=== PATIENT | male | born 1935 | race Caucasian/White ===

== ENCOUNTER 2019-07-06 | Emergency (ER) | payer MEDICARE ==
[~2019-07-06] MED LIST: BACTRIM DS1 TAB PO; KEFLEX500 M1 PO
[2019-07-06] MEDS ORDERED: INDAPAMIDE2.5 MG PO (08:10)
[2019-07-06] MEDS ORDERED: NITROGLYCERIN0.4 MG SL (08:11)
[2019-07-06] MEDS ORDERED: ATENOLOL25 MG PO (08:11)
[2019-07-06] MEDS ORDERED: HYDROXYCHLOR200 M1 PO (08:12)
[2019-07-06] MEDS ORDERED: PREDNISONE5 MG PO (08:13)
[2019-07-06] MEDS ORDERED: LORTAB 5/3255 MG PO (08:15)
[2019-07-06] MEDS ORDERED: DITROPAN5 MG/TA1 PO (08:16)
[2019-07-06] MEDS ORDERED: FUROSEMIDE20 MG PO (08:16)
[2019-07-06] MEDS ORDERED: DOXAZOSIN4 MG PO (08:17)
[2019-07-06] MEDS ORDERED: POTASSIUM CHLO20 ME2 PO (08:17)
[2019-07-06] MEDS ORDERED: ASPIRIN ADULT L81 M2 PO (08:18)
[2019-07-06] MEDS ORDERED: VITAMIN D31000 UNI1 PO (08:19)
== END 2019-07-06 09:30 | disposition home or self-care (01) ==
PROC: 0HQGXZZ Repair Left Hand Skin, External Approach (ICD-10-PCS; principal; 2019-07-06)
DX: S61.217A Laceration without foreign body of left little finger without damage to nail, initial encounter (principal); S80.02XA Contusion of left knee, initial encounter; S61.512A Laceration without foreign body of left wrist, initial encounter; S00.33XA Contusion of nose, initial encounter; S90.112A Contusion of left great toe without damage to nail, initial encounter; W01.0XXA Fall on same level from slipping, tripping and stumbling without subsequent striking against object, initial encounter; Y92.009 Unspecified place in unspecified non-institutional (private) residence as the place of occurrence of the external cause; Z96.652 Presence of left artificial knee joint
CPT/HCPCS: L1830

== ENCOUNTER 2020-08-06 | Emergency (ER) | payer MEDICARE ==
[~2020-08-06] MED LIST changes: +ASPIRIN ADULT L81 M2 PO; +ATENOLOL25 MG PO; +DITROPAN5 MG/TA1 PO; +DOXAZOSIN4 MG PO; +FUROSEMIDE20 MG PO; +HYDROXYCHLOR200 M1 PO; +INDAPAMIDE2.5 MG PO; +LORTAB 5/3255 MG PO; +NITROGLYCERIN0.4 MG SL; +POTASSIUM CHLO20 ME2 PO; +PREDNISONE5 MG PO; +VITAMIN D31000 UNI1 PO
[2020-08-06] MEDS ORDERED: CEPHALEXIN500 M1 PO (10:29)
== END 2020-08-06 11:40 | disposition home or self-care (01) ==
DX: M54.6 Pain in thoracic spine (principal); W01.0XXA Fall on same level from slipping, tripping and stumbling without subsequent striking against object, initial encounter

== ENCOUNTER 2021-06-19 22:33 | Emergency (ER) | payer MEDICARE ==
[~2021-06-19 22:33] MED LIST changes: +CEPHALEXIN500 M1 PO
== END 2021-06-19 23:48 | disposition left against medical advice (07) ==
LOC: ED 22:33 → LWOBS 23:48
DX: Z53.21 Procedure and treatment not carried out due to patient leaving prior to being seen by health care provider (principal)